=== PATIENT | male | born 1965 | race Caucasian/White ===

== ENCOUNTER 2018-05-22 07:50 | Emergency (ER) | payer SELFPAY ==
[2018-05-22 07:51] VITALS: BP 147/99; PULSE 74; RESP 18; TEMP 36.3; O2SAT 95; BMI 27.4
[2018-05-22] MEDS: Fluorescein 1 MG STRIP 1 STRIP RIGHT EYE (08:13)
[2018-05-22] MEDS: Tetracaine 0.5% Ophthalmic Bottle 1 DRP RIGHT EYE (08:13)
--- NOTE | 2018-05-22 08:18 | ED.VISSUMM ---
- ER Visit Summary Date of Service: 05/22/18 Chief Complaint: [Right eye discomfort] History of Present Illness: The patient is a 53 M [presents the emergency department complaint of discomfort in his right eye that he awoke with this morning. Patient denies any foreign body sensation prior to going to bed or trauma to his eye. Patient did irrigate his own eye with saline at home and seemed to get some relief. Patient describes some mild discomfort to the lower inner eyelid. Patient states that he actually feels improved on arrival to the emergency department compared to when he first woke up. He denies any photophobia. Denies visual change.] Physical Examination: [HEENT-PERRLA, EOMI. Cranial nerves II through XII grossly intact. TMs clear. Mucous membranes moist. No adenopathy. Right eye-no hyphema, no significant conjunctival erythema. Patient does have some faint erythema to the inner aspect of the lower lid. Eyelids were everted no foreign bodies noted. Cardiovascular-regular rate and rhythm without murmur or ectopy Lungs-clear to auscultation, chest wall stable without crepitus or subcu emphysema Abdomen-normoactive bowel sounds, soft, nontender, no rebound or rigidity, no peritoneal signs. Extremities-intact ?4, normal range of motion, normal pulses, atraumatic] Test Results: [Visual acuity performed. Right eye was evaluated after placing tetracaine in the eye. Eye was stained with floor seen and there is no evidence of corneal abrasion or diet uptake.] Emergency Department Course and Treatment: [Patient was started on gentamicin ophthalmic drops.] Treatment Plan: [Follow-up with ophthalmology in 2-3 days.] Disposition: [Discharged home in stable condition] Impression: [Right eye pain-etiology uncertain] This note was generated with [employer] dictation software. It may contain incorrect words, spelling, and punctuation that were not noted in review of the chart prior to signing ED Disposition - Plan for ED Patient: Chief Complaint: Eye Problem Referrals: NOT,DEFINED [Primary Care Provider] -
--- NOTE | 2018-05-22 08:21 | ED.DCSUM_ITS ---
- ER Visit Summary Date of Service: 05/22/18 Chief Complaint: [Right eye discomfort] History of Present Illness: The patient is a 53 M [presents the emergency department complaint of discomfort in his right eye that he awoke with this morning. Patient denies any foreign body sensation prior to going to bed or trauma to his eye. Patient did irrigate his own eye with saline at home and seemed to get some relief. Patient describes some mild discomfort to the lower inner eyelid. Patient states that he actually feels improved on arrival to the emergency department compared to when he first woke up. He denies any photophobia. Denies visual change.] Physical Examination: [HEENT-PERRLA, EOMI. Cranial nerves II through XII grossly intact. TMs clear. Mucous membranes moist. No adenopathy. Right eye- no hyphema, no significant conjunctival erythema. Patient does have some faint erythema to the inner aspect of the lower lid. Eyelids were everted no foreign bodies noted. Cardiovascular-regular rate and rhythm without murmur or ectopy Lungs-clear to auscultation, chest wall stable without crepitus or subcu emphysema Abdomen-normoactive bowel sounds, soft, nontender, no rebound or rigidity, no peritoneal signs. Extremities-intact ?4, normal range of motion, normal pulses, atraumatic] Test Results: [Visual acuity performed. Right eye was evaluated after placing tetracaine in the eye. Eye was stained with floor seen and there is no evidence of corneal abrasion or diet uptake.] Emergency Department Course and Treatment: [Patient was started on gentamicin ophthalmic drops.] Treatment Plan: [Follow-up with ophthalmology in 2-3 days.] Disposition: [Discharged home in stable condition] Impression: [Right eye pain-etiology uncertain] This note was generated with [employer] dictation software. It may contain incorrect words, spelling, and punctuation that were not noted in review of the chart prior to signing ED Disposition - Plan for ED Patient: Chief Complaint: Eye Problem Referrals: NOT,DEFINED [Primary Care Provider] -
--- NOTE | 2018-05-22 08:21 | ED.DEP ---
ED Disposition - Plan for ED Patient: Chief Complaint: Eye Problem Instructions: ED Conjunctivitis Bacterial Referrals: NOT,DEFINED [Primary Care Provider] - Jerome Haq MD [STAFF PHYSICIAN] - 2 Days
[2018-05-22] MEDS: Gentamicin Sulfate 1 OPTH.BTL 2 DRP RIGHT EYE (08:24)
== END 2018-05-22 08:28 | disposition home or self-care (01) ==
LOC: ED 08:23
PROVIDERS: Emergency Provider Emergency Medicine
DX: H57.11 Ocular pain, right eye (principal); Z72.0 Tobacco use
CPT/HCPCS: 99283

== ENCOUNTER → 2018-11-04 13:51 | Outpatient (CLI) | payer SELFPAY ==
[2018-11-04 13:41] VITALS: BMI 28.6
--- NOTE | 2018-11-04 13:58 | RAD_ITS ---
STUDY: X-RAY CHEST REASON FOR EXAM: Male, 53 years old. Cough and body aches. TECHNIQUE: PA and lateral views of the chest. COMPARISON: None. FINDINGS: Hyperinflation. Scattered calcified granulomas. There is no demonstrated pleural abnormality. Normal size heart. Normal mediastinum and gregor. Normal visualized pulmonary arteries. Normal visualized aortic arch and descending thoracic aorta. There are diffuse degenerative changes of the visualized thoracic spine. Normal visualized ribs, clavicles, and shoulders. There is no demonstrated abnormality of the visualized soft tissue structures of the upper abdomen. RAD/Chest PA and Lateral IMPRESSION: Hyperinflation. Scattered bilateral calcified granulomas. Electronically Signed: Jose A Martinez, at 14:22 EDT , Service support ,
== END ==
PROVIDERS: Referring Provider Physician Assistant; Visit Provider Physician Assistant
DX: R05 Cough (principal)
CPT/HCPCS: 71046

== ENCOUNTER → 2020-09-12 08:43 | Outpatient (CLI) | payer MEDICAID, SELFPAY ==
[2020-07-10 11:25] VITALS: BMI 30.7
[2020-09-12 12:31] LABS: AST(SGOT) 23 U/L (15-37); Alanine Aminotransfer ALT/SGPT 40 U/L (16-61); Albumin, Serum 3.9 g/dL (3.2-5.0); Alkaline Phosphatase 96 U/L (45-117); Anion Gap 3 (5-15); BUN 16 mg/dL (7-18); BUN/Creat Ratio 15.1 RATIO (10-20); Calcium,Total 8.8 mg/dL (8.5-10.1); Chloride 103 mmol/L (98-107); Cholesterol 244 mg/dL (200); Creatinine, Serum 1.06 mg/dL (0.70-1.30); EST Glomerular Filtration Rate 76 mL/min (>60); Est Glom Filt Rate - Afr Amer 92 mL/min (>60); Glucose 92 mg/dL (74-106); High Density Lipoprotein 54 mg/dL; PSA,Total - Annual Screen 1.93 ng/mL (0.00-4.00); Protein, Total 7.9 g/dL (6.4-8.2); Sodium Level 138 mmol/L (136-145); Triglycerides 225 mg/dL; Very Low Density Lipoprotein 45 mg/dL (5-40)
[2020-09-12 12:48] LABS: Absolute Lymphocyte Count 3.41 X10^3/uL (0.83-4.51); Absolute Neutrophil Count 7.2 X10^3/uL (2.0-7.7); Basophil# 0.12 X10^3/uL; Eosinophils% 2.5 % (0-5); Hematocrit 53.4 % (40-54); Hemoglobin 17.5 g/dL (13.0-16.5); Lymphocyte # 3.41 X10^3/ul (4.0); Lymphocyte % 28.4 % (19-41); Mean Corp Hgb Conc 32.8 g/dL (32-36); Mean Corpuscular Hgb 29.9 pg (27.0-32.0); Mean Corpuscular Volume 91.1 fL (80-94); Mean Platelet Vol. 10.5 fl (6.2-12.0); Monocyte% 8.3 % (0-10); NRBC Flagged by Analyzer 0 % (0-5); Neutrophil # 7.15 X10^3/uL (2.7-7.7); Neutrophil % 59.5 % (47-70); Platelet Count 245 K/mm3 (150-450); RBC Distribution Width CV 12.9 % (11.6-14.6); RBC Distribution Width SD 43.2 fl (35.1-43.9); Red Blood Count 5.86 M/mm3 (4.6-6.2)
== END ==
PROVIDERS: PCP Family Medicine; Visit Provider Family Medicine
DX: Z00.00 Encounter for general adult medical examination without abnormal findings (principal); E78.5 Hyperlipidemia, unspecified
CPT/HCPCS: 36415; 80053; 80061; 84153; 85025; G0103